=== PATIENT | female | born 1990 | race Caucasian/White ===

== ENCOUNTER 2020-01-04 23:46 | Emergency (ER) | payer OTHER ==
[~2020-01-04] VITALS: Ht 167.6 cm; Wt 82.1 kg
[2020-01-04 23:53] VITALS: Ht 167.6 cm; Wt 82.1 kg
[2020-01-05 05:11] VITALS: BP 118/64
== END 2020-01-05 05:11 | disposition home or self-care (01) ==
LOC: ED 23:46
DX: K59.00 Constipation, unspecified (principal)